=== PATIENT | male | born 1970 | race Caucasian/White ===

== ENCOUNTER → 2023-04-08 | Outpatient (CLI) | payer OTHER, SELFPAY ==
--- NOTE | 2023-04-08 14:06 | RAD_ITS ---
INDICATION: Left knee injury EXAMINATION/TECHNIQUE: X-RAY - LEFT XR Knee Complete 4 Views or More 4 VIEWS COMPARISON: None FINDINGS: SOFT TISSUES: Small suprapatellar joint effusion. No soft tissue swelling or gas. No radiopaque foreign body. BONES/JOINTS: No acute fracture or subluxation. There is a large osseous spur extending from the inferior aspect of the patella, wall a small spur is seen at the insertion of the quadriceps tendon on the patella. Early inferior periarticular spurring of the patella. Normal alignment. Preservation of the joint space. No sclerotic or destructive changes observed. RAD/Knee 4 or More Views IMPRESSION: 1. Large osseous spur at the patellar insertion of the patellar ligament. No acute osseous abnormality of the left knee. 2. Small suprapatellar joint effusion present. Electronically Signed: Paco Babin MD at 14:40 EDT Reading Location ID and State: [id number] / Unknown , Service support ,
== END | disposition home or self-care (01) ==
PROVIDERS: PCP Family Medicine; Referring Provider Family Medicine; Visit Provider Family Medicine
DX: S89.92XA Unspecified injury of left lower leg, initial encounter (principal)
CPT/HCPCS: 73564